=== PATIENT | male | born 1960 | race Caucasian/White ===

== ENCOUNTER 2017-09-12 18:23 | Emergency (ER) | payer OTHER ==
[~2017-09-12] VITALS: Ht 172.7 cm; Wt 117.9 kg
[2017-09-12 18:35] VITALS: BP 132/74
--- NOTE | 2017-09-12 18:37 | NUR ---
PT AMBULATED TO ER BED 07
[2017-09-12] MEDS ORDERED: MORPHINE SULFATE 2 MG/ML SYR IVP ONE (18:40)
[2017-09-12] MEDS ORDERED: ASPIRIN 81 MG TAB.CHEW PO ONE (18:40)
[2017-09-12] MEDS ORDERED: NITROGLYCERIN 2% 1 GM PKT TP ONE (18:40)
[2017-09-12] MEDS ORDERED: NACL 0.9% 1,000 ML IV ONE (18:40)
--- NOTE | 2017-09-12 18:40 | NUR ---
PT. CAME INTO THE ED DUE TO STERNAL INTERMITTENT CHEST PAIN SINCE THIS MORNING. PT. STATES " THIS MORNING I STARTED WITH CHEST PAIN THAT COMES AND GOES, I HAD A HEART ATTACK 11 YEARS AGO, SO CAME TO GET CHECKED OUT". PT. IS AAOX4, RR EVEN AND UNLABORED. PT. DENIES N/V/D. PT. SKIN IS WARM AND DRY. PT. HAS SOB WHEN CHEST PAIN COMES BUT NO SOB AT THIS TIME. 11/19 STERNAL INTERMITTENT CHEST PAIN THAT IS NON RADIATING AND SHARP. ER MD NOTIFIED. SAFETY PRECAUTIONS IMPLEMENTED. WILL CONTINUE TO MONITOR.
[2017-09-12] MEDS ORDERED: METH500T14 PO (18:44)
[2017-09-12] MEDS ORDERED: SIMV40TA1 PO (18:44)
[2017-09-12] MEDS ORDERED: MSCON15 PO ×2 (18:44)
[2017-09-12] MEDS ORDERED: OMEP20TC12 PO (18:44)
[2017-09-12] MEDS ORDERED: METF500T2 PO (18:44)
[2017-09-12] MEDS ORDERED: DOCU100C31 PO (18:44)
[2017-09-12] MEDS ORDERED: LISI5TAB18 PO (18:44)
[2017-09-12] MEDS ORDERED: VITD1000 PO (18:44)
[2017-09-12] MEDS ORDERED: RANI150T8 PO (18:44)
[2017-09-12] MEDS ORDERED: ASPI81EC98 PO (18:44)
[2017-09-12] MEDS ORDERED: ONDANSETRON 4 MG/2 ML VIAL IVP ONE (18:45)
--- NOTE | 2017-09-12 19:13 | NUR ---
Pt report given to BILLY POWELL . Transfer of care at this time.
[2017-09-12 19:17] LABS: BASOPHILS # (AUTO) 0.1 K/uL (0.00-0.22); BASOPHILS % (AUTO) 0.9 % (0.0-2.0); EOSINOPHILS # (AUTO) 0.4 K/uL (0-0.4); EOSINOPHILS % (AUTO) 5.5 % (0.0-4.0); HEMOGLOBIN 13.5 g/dL (12.0-18.0); LYMPHOCYTES # (AUTO) 2.7 K/uL (2.0-11.5); LYMPHOCYTES % (AUTO) 33.8 % (20.5-51.1); MEAN CORPUSCULAR HEMOGLOBIN 24 pg (27-31); MEAN CORPUSCULAR HGB CONC 33 g/dL (33-37); MEAN CORPUSCULAR VOLUME 74.2 fL (80-94); MONOCYTES # (AUTO) 0.6 K/uL (0.8-1.0); MONOCYTES % (AUTO) 6.9 % (1.7-9.3); NEUTROPHILS # (AUTO) 4.2 K/uL (1.8-7.7); NEUTROPHILS % (AUTO) 52.9 % (42.2-75.2); PLATELET COUNT (AUTO) 277 K/uL (140-450); RED BLOOD CELL COUNT(AUTO) 5.53 MIL/uL (4.20-6.10); RED CELL DISTRIBUTION WIDTH 14.9 % (11.6-13.7); WHITE BLOOD COUNT (AUTO) 7.9 K/uL (4.8-10.8)
[2017-09-12 19:28] LABS: PROTHROMBIN TIME 9.8 secs (10.8-13.4)
[2017-09-12 19:30] LABS: ANION GAP 9.2 (8-16); CARBON DIOXIDE 29.8 mmol/L (21-32); CREATININE 1.3 mg/dL (0.7-1.3)
[2017-09-12 19:35] LABS: ALBUMIN 3.8 g/dL (3.4-5.0); TOTAL BILIRUBIN 0.3 mg/dL (0.0-1.0)
--- NOTE | 2017-09-12 19:39 | NUR ---
Dr. Kohler evaluating patient at bedside.
[2017-09-12 20:22] VITALS: BP 132/74
--- NOTE | 2017-09-12 20:22 | NUR ---
Patient discharged with v/s stable. Written and verbal after care instructions given and explained. Patient verbalized understanding. Ambulatory with steady gait. All questions addressed prior to discharge. Advised to follow up with PMD.
== END 2017-09-12 20:22 | disposition home or self-care (01) ==
LOC: MED 18:23
DX: I20.9 Angina pectoris, unspecified (principal); I25.2 Old myocardial infarction; Z79.899 Other long term (current) drug therapy
CPT/HCPCS: 36415; 71045; 80053; 81002; 84484; 85025; 85379; 85610; 85730; 93005; 99285; Q0092

== ENCOUNTER 2020-03-21 18:43 | Emergency (ER) | payer OTHER ==
[~2020-03-21] VITALS: Ht 172.7 cm; Wt 117.9 kg
[~2020-03-21 18:43] MED LIST: ASPI81EC98 PO; DOCU100C31 PO; LISI5TAB18 PO; METF500T2 PO; METH-1681 PO; MSCON15 PO; OMEP20TC12 PO; RANI150T8 PO; SIMV40TA1 PO; VITD1000 PO
[2020-03-21 19:50] VITALS: BP 143/78
--- NOTE | 2020-03-21 19:50 | NUR ---
TO TENT AMBULATORY
[2020-03-21] MEDS ORDERED: ALBUTEROL HFA MDI 90 MCG/ACTUATION 8 GM INH ONE (20:20)
[2020-03-21] MEDS ORDERED: AZITHROMYCIN 250 MG TAB PO ONE (20:20)
[2020-03-21] MEDS ORDERED: cefTRIAXone 1,000 MG in LIDOCAINE MPF 1% 2.1 ML IM ONE (20:20)
[2020-03-21] MEDS ORDERED: DEXAMETHASONE 4 MG/ML VIAL IM ONE (20:20)
[2020-03-21] MEDS ORDERED: cefTRIAXone 1,000 MG VIAL ONE (20:58)
[2020-03-21] MEDS ORDERED: LIDOCAINE MPF 1% 5 ML ONE (20:59)
--- NOTE | 2020-03-21 21:00 | NUR ---
MEDICATED PER ERMDS ORDER, TOLERATED WELL.
--- NOTE | 2020-03-21 21:06 | NUR ---
SWABS DONE AND SENT TO LAB
--- NOTE | 2020-03-21 21:15 | NUR ---
SEEN AND EXAMINED BY JONAS WITH ORDERS, CARRIED OUT
--- NOTE | 2020-03-21 23:42 | NUR ---
PT IS COVID POSITIVE PER JOHN RESULTS. ERMD MADE AWARE.
[2020-03-21 23:57] VITALS: BP 121/72
--- NOTE | 2020-03-21 23:57 | NUR ---
Patient discharged with v/s stable. Written and verbal after care instructions given and explained. Patient alert, oriented and verbalized understanding of instructions. Ambulatory with steady gait. All questions addressed prior to discharge. ID band removed. Patient advised to follow up with PMD. Rx of VENTOLIN, PREDNISONE, AUGMENTIN, AZITHROMYCIN given. Patient educated on indication of medication including possible reaction and side effects. Opportunity to ask questions provided and answered.
== END 2020-03-21 23:57 | disposition home or self-care (01) ==
LOC: MED 18:43
DX: U07.1 COVID-19 (principal); J12.89 Other viral pneumonia; E11.9 Type 2 diabetes mellitus without complications; I10 Essential (primary) hypertension; Z79.899 Other long term (current) drug therapy; Z79.82 Long term (current) use of aspirin; Z79.84 Long term (current) use of oral hypoglycemic drugs; Z98.890 Other specified postprocedural states
CPT/HCPCS: 71045; 87426; 87804; 96372; 99284; J0696; J1100; J2001; J3535

== ENCOUNTER 2023-02-21 23:04 | Emergency (ER) | payer OTHER ==
[~2023-02-21] VITALS: Ht 172.7 cm; Wt 116.1 kg
[~2023-02-21 23:04] MED LIST changes: +CHOL100084 PO; +METF-1139 PO; -METF500T2 PO; +OMEP-278 PO; -OMEP20TC12 PO; +SIMV-373 PO; -SIMV40TA1 PO; -VITD1000 PO
[2023-02-21 23:11] VITALS: BP 172/86; PULSE 57; RESP 22; TEMP 98; O2SAT 97
[2023-02-22 00:50] VITALS: O2SAT 98
[2023-02-22] MEDS ORDERED: ONDANSETRON 4 MG/2 ML VIAL IVP ONE (02:40)
[2023-02-22] MEDS ORDERED: MORPHINE SULFATE 4 MG/ML SYR IVP ONE ×2 (02:40→05:40)
[2023-02-22 02:55] LABS: BASOPHILS # (AUTO) 0.1 K/uL (0.00-0.22); BASOPHILS % (AUTO) 0.5 % (0.0-2.0); EOSINOPHILS % (AUTO) 0.2 % (0.0-4.0); HEMOGLOBIN 13.4 g/dL (12.0-18.0); LYMPHOCYTES # (AUTO) 1.8 K/uL (2.0-11.5); LYMPHOCYTES % (AUTO) 12.1 % (20.5-51.1); MEAN CORPUSCULAR HEMOGLOBIN 24 pg (27-31); MEAN CORPUSCULAR HGB CONC 32 g/dL (33-37); MEAN CORPUSCULAR VOLUME 74.7 fL (80-94); MONOCYTES # (AUTO) 0.5 K/uL (0.8-1.0); MONOCYTES % (AUTO) 3.5 % (1.7-9.3); NEUTROPHILS # (AUTO) 12.5 K/uL (1.8-7.7); NEUTROPHILS % (AUTO) 83.7 % (42.2-75.2); PLATELET COUNT (AUTO) 293 K/uL (140-450); RED BLOOD CELL COUNT(AUTO) 5.61 MIL/uL (4.20-6.10); RED CELL DISTRIBUTION WIDTH 15.1 % (11.6-13.7); WHITE BLOOD COUNT (AUTO) 14.9 K/uL (4.8-10.8)
[2023-02-22 03:20] LABS: ALBUMIN 3.6 g/dL (3.4-5.0); BILIRUBIN,DIRECT 0.1 mg/dL (0.0-0.3); TOTAL BILIRUBIN 0.3 mg/dL (0.0-1.0); TOTAL PROTEIN, SERUM 7.6 g/dL (6.4-8.2)
[2023-02-22 03:24] LABS: ANION GAP 13.8 (8-16); CARBON DIOXIDE 28.1 mmol/L (21-32); CREATININE 1.1 mg/dL (0.6-1.3); POTASSIUM 3.9 mmol/L (3.5-5.1)
[2023-02-22] MEDS ORDERED: ONDANSETRON 4 MG/2 ML VIAL ONE (03:45)
[2023-02-22] MEDS ORDERED: MORPHINE SULFATE 4 MG/ML SYR ONE (03:45)
[2023-02-22] MEDS ORDERED: KETOROLAC 30 MG/ML VIAL IVP ONE (05:40)
[2023-02-22 06:42] LABS: APPEARANCE,URINE CLEAR (CLEAR); BILIRUBIN,URINE NEGATIVE (NEGATIVE); BLOOD, URINE NEGATIVE (NEGATIVE); COLOR,URINE YELLOW (YELLOW); LEUKOCYTE ESTERASE ,URINE NEGATIVE (NEGATIVE); NITRITE, URINE NEGATIVE (NEGATIVE); PH,URINE 5.5 (5.0-9.0); PROTEIN,URINE TRACE (NEGATIVE); UGLUCOSE NEGATIVE (NEGATIVE); UROBILINOGEN,URINE 0.2 EU/dL (0.2 - 1)
[2023-02-22] MEDS ORDERED: NAPR-54 PO (06:59)
[2023-02-22] MEDS ORDERED: METR-435 PO (06:59)
[2023-02-22] MEDS ORDERED: BEN10 PO (06:59)
[2023-02-22] MEDS ORDERED: MORPHINE SULFATE 2 MG/ML SYR IVP STA (07:05)
[2023-02-22 07:31] VITALS: BP 178/74; PULSE 58; RESP 18; TEMP 98.2; O2SAT 98
== END 2023-02-22 02:32 | disposition home or self-care (01) ==
LOC: MED 23:04
DX: R19.7 Diarrhea, unspecified (principal); R10.9 Unspecified abdominal pain; R42 Dizziness and giddiness; I25.2 Old myocardial infarction; E11.9 Type 2 diabetes mellitus without complications; I10 Essential (primary) hypertension; Z95.5 Presence of coronary angioplasty implant and graft; Z79.899 Other long term (current) drug therapy; Z79.2 Long term (current) use of antibiotics; Z79.82 Long term (current) use of aspirin; Z79.1 Long term (current) use of non-steroidal anti-inflammatories (NSAID)
CPT/HCPCS: 36415; 74176; 80048; 80076; 81003; 83690; 85025; 93005; 96374; 96375; 96376; 99285; J1885; J2270; J2405